=== PATIENT | female | born 1975 | race Caucasian/White ===

== ENCOUNTER 2020-09-06 19:18 | Inpatient (IN) | payer OTHER ==
[~2020-09-06] VITALS: Ht 172.7 cm; Wt 90.7 kg
--- NOTE | 2020-09-06 19:29 | NUR ---
SE RECIBE PACIENTE ALERTA, ORIENTADO X 3 ESFERAS REFIERE VENIR POR RESULTADOS DE LABORATORIOS ALTERADOS HEMOGLOBINA BAJA, Y PRSENTA DOLOR EN AREADE ABDOMEN BAJO. SE UBICA EN AREA DE OBSERVACION.
--- NOTE | 2020-09-06 20:55 | NUR ---
PTE EVALUADA POR EL DR GOMEZOSTA QUIEN [place]. SE ORIENTA SOBRE EL MISMO, LO CUAL REFIERE ENTENDER. SE REALIZA PRUEBAS DE LABORATORIO Y SE ADMINISTRA MEDICAMENTOS HAYDEN ORDEN MEDICA Y SIGUIENDO MEDIDAS ASEPTICAS. SE COLECTAN TUBOS PILOTOS PARA 2 U DE PRBC PARA TRANSFUNDIR. SE ENTREGAN LAS MISMAS A LABORATORIO Y SE NOTIFICA A [facility] [place] [facility] DE SHREYAS A LAS 8:35PM.
--- NOTE | 2020-09-06 23:00 | NUR ---
SE RECIBE FEMINA ALERTA Y ORIENTADA POR LUCIA ESFERAS, EN ADAMA CON BARANDAS SEGURAS Y ELEVADAS. AREA DE VENOPUNCION ABHI DE EDEMA O ENROJECIMIENTO. RECIBIENDO IVF ORDENADO. 09/07/200-SE LLAMA A [facility] PARA VERIFICAR ESTATUS DE SHREYAS ORDENADA. REFIEREN QUE LA SHREYAS VIENE DE [place].
--- NOTE | 2020-09-07 07:29 | NUR ---
SE RECIBE PTE FEMENINA DE 45 YRS ALERTA CONCIENTE Y TRANQUILA EN COMPANIA DE FAMILIAR. PTE SE OBSERVA CON IVF PATENTE Y ABHI DE EDEMA. PTE PENDIENTE A 2DA TRANSFUCION DE PRB'S. PTE ABHI DE DOLOR AL MOMENTO. SE MANTIENE BAJO OBSERVACION.
--- NOTE | 2020-09-07 08:37 | NUR ---
SE LE ARAVIND S/V A PTE PARA COMENZAR LA 2 UNIDAD DE PRB'S. SE MANTIENE ABHI DE DOLOR Y SE DOCUEMTA LOS S/V .
--- NOTE | 2020-09-07 12:30 | NUR ---
SE LE TERMINA TRASFUCIONE DE SHREYAS LA CUAL TOLERA.SE MANTIENE BAJO OBSERVACION.
[2020-09-09] MEDS ORDERED: SURFAK240 M1 PO (13:48)
[2020-09-09] MEDS ORDERED: INTEGRA PLUS C1 EACH PO (13:48)
[2020-09-09] MEDS ORDERED: Neurin-Sl Tablet Sl SL (13:48)
[2020-09-09] MEDS ORDERED: PEPCID AC20 MG PO (13:48)
[2020-09-09] MEDS ORDERED: FOLIC ACID1 MG PO (13:48)
== END 2020-09-09 14:38 | disposition home or self-care (01) | DRG 812 ==
LOC: ER 19:18 → MEDI 09-07 11:00 → OB/GYN 09-07 11:00
PROVIDERS: ADMIT Internal Medicine; ATTEND Internal Medicine
PROC: 30233N1 Transfusion of Nonautologous Red Blood Cells into Peripheral Vein, Percutaneous Approach (ICD-10-PCS; principal; 2020-09-07)
PROC: BW4GZZZ Ultrasonography of Pelvic Region (ICD-10-PCS; 2020-09-07)
DX: D50.0 Iron deficiency anemia secondary to blood loss (chronic) (principal); Z20.828 Contact with and (suspected) exposure to other viral communicable diseases; D25.1 Intramural leiomyoma of uterus; E53.8 Deficiency of other specified B group vitamins; M51.26 Other intervertebral disc displacement, lumbar region

== ENCOUNTER 2020-12-22 06:20 | Day surgery (SDC) | payer OTHER ==
[~2020-12-22 06:20] MED LIST: FOLIC ACID1 MG PO; INTEGRA PLUS C1 EACH PO; Neurin-Sl Tablet Sl SL; PEPCID AC20 MG PO; SURFAK240 M1 PO
[2020-12-22] MEDS ORDERED: PERCOCET 5-3251 EACH PO (12:59)
[2020-12-22] MEDS ORDERED: KETO10TA2 PO (12:59)
[2020-12-22] MEDS ORDERED: DERMOPLAST PAIN78 GM TOP (13:00)
== END 2020-12-22 17:25 | disposition home or self-care (01) ==
LOC: CIR.AMB 06:20
PROVIDERS: ATTEND Surgery
DX: K64.8 Other hemorrhoids (principal); K64.4 Residual hemorrhoidal skin tags; Z20.822 Contact with and (suspected) exposure to COVID-19

== ENCOUNTER 2021-04-13 09:36 | Outpatient (CLI) | payer OTHER ==
[~2021-04-13 09:36] MED LIST changes: +DERMOPLAST PAIN78 GM TOP; +KETO10TA2 PO; +PERCOCET 5-3251 EACH PO
== END 2021-04-13 09:40 | disposition home or self-care (01) ==
LOC: SONOGRAMA 09:36
PROVIDERS: ATTEND Pathology Anatomic Pathology
DX: E03.8 Other specified hypothyroidism (principal)

== ENCOUNTER 2024-09-28 15:19 | Emergency (ER) | payer OTHER ==
[~2024-09-28] VITALS: Ht 172.7 cm; Wt 88.5 kg
[2024-09-28] MEDS ORDERED: ATORVASTATIN CA40 MG PO (16:23)
[2024-09-28] MEDS ORDERED: AMLODIPINE-OLM1 EAC2 (16:24)
[2024-09-28] MEDS ORDERED: CHLORTHALIDONE25 MG PO (16:24)
[2024-09-28 17:14] LABS: HEMATOCRIT 41.1 % (36.0-45.00); HEMOGLOBIN 14.1 g/dL (12.0-15.00); MEAN CELL VOLUME 85.4 fL (80.00-100.00); MEAN CORPUSCULAR HEMOGLOBIN 29.4 pg (27.00-32.0); MEAN CORPUSCULAR HGB CONC 34.4 g/dl (32.0-36.0); PLATELET COUNT 328 K/uL (150-450); RED BLOOD COUNT 4.81 M/uL (4.00-6.00); RED CELL DISTRIBUTION WIDTH 13.4 % (11.5-14.5)
[2024-09-28] MEDS ORDERED: ANALPRAM HC 2.530 GM RECTAL (18:03)
== END 2024-09-28 18:06 | disposition home or self-care (01) ==
LOC: ER 15:21
PROVIDERS: General Practice
DX: K64.9 Unspecified hemorrhoids (principal)

== ENCOUNTER 2025-01-09 14:36 | Emergency (ER) | payer OTHER ==
[~2025-01-09] VITALS: Ht 172.7 cm; Wt 88.0 kg
[~2025-01-09 14:36] MED LIST changes: +AMLODIPINE-OLM1 EAC2; +ANALPRAM HC 2.530 GM RECTAL; +ATORVASTATIN CA40 MG PO; +CHLORTHALIDONE25 MG PO
[2025-01-09 14:41] VITALS: BP 126/84; O2SAT 100
[2025-01-09 16:52] LABS: HEMATOCRIT 40.3 % (36.0-45.00); HEMOGLOBIN 13.6 g/dL (12.0-15.00); MEAN CELL VOLUME 84.7 fL (80.00-100.00); MEAN CORPUSCULAR HEMOGLOBIN 28.6 pg (27.00-32.0); MEAN CORPUSCULAR HGB CONC 33.8 g/dl (32.0-36.0); PLATELET COUNT 340 K/uL (150-450); RED BLOOD COUNT 4.76 M/uL (4.00-6.00); RED CELL DISTRIBUTION WIDTH 13.6 % (11.5-14.5)
[2025-01-09 17:26] LABS: PH,URINE 5.5 (5.0-8.0); URINE APPEARANCE Clear; URINE BILIRRUBIN Negative (NEGATIVE); URINE BLOOD Negative; URINE COLOR Yellow; URINE GLUCOSE Negative (NEGATIVE); URINE KETONE Negative (NEGATIVE); URINE LEUKOCYTE Negative; URINE NITRATE Negative; URINE PROTEIN Trace (NEGATIVE); URINE UROBILINOGEN 0.2 E.U./dl
[2025-01-09 17:28] LABS: URINE BACTERIA 17.1 uL (0.0-1933); URINE EPITHELIAL CELLS 3.9 uL (0.0-38.8); URINE RBC 3.8 uL (0.0-20.8); URINE WBC 1.8 uL (0.0-23.2)
[2025-01-09 18:37] LABS: URINE CAST 0.14 uL (0.0-1.40)
[2025-01-09] MEDS ORDERED: LACTOBACILLUS ACIDOPHILUS 1 CAP CAP PO STA (18:44)
[2025-01-09] MEDS ORDERED: HYOSCYAMINE SULFATE 0.125 MG TAB.SUBL SL STA (18:46)
[2025-01-09] MEDS ORDERED: KETOROLAC TROMETHAMINE 30 MG VIAL IM STA (18:48)
[2025-01-09] MEDS ORDERED: KETOROLAC TROMETHAMINE 30 MG VIAL ONE (19:29)
[2025-01-09] MEDS ORDERED: HYOSCYAMINE SULFATE 0.125 MG TAB.SUBL ONE (19:29)
[2025-01-09] MEDS ORDERED: LACTOBACILLUS ACIDOPHILUS 1 CAP CAP PO ONE (19:29)
== END 2025-01-09 19:58 | disposition home or self-care (01) ==
LOC: ER 14:39
PROVIDERS: General Practice
DX: R10.32 Left lower quadrant pain (principal)

== ENCOUNTER 2025-05-15 11:17 | Inpatient (IN) | payer OTHER ==
[~2025-05-15] VITALS: Ht 243.8 cm; Wt 90.7 kg
[2025-05-15 12:05] LABS: RH POSITIVE
[2025-05-22] MEDS ORDERED: CEFAZOLIN SODIUM 1,000 MG VIAL IV SCH (05:00)
[2025-05-22] MEDS ORDERED: PANTOPRAZOLE SO40 MG (10:03)
[2025-05-22] MEDS ORDERED: AMLODIPINE BESYL5 MG (10:04)
[2025-05-22] MEDS ORDERED: NORETHINDRONE AC5 MG (10:04)
[2025-05-22] MEDS ORDERED: BIOTINEX (10:05)
[2025-05-22] MEDS ORDERED: BUPIVACAINE HCL 30 ML VIAL IJ ONE (18:15)
[2025-05-22] MEDS ORDERED: LIDOCAINE HCL 1%/EPINEPHRINE 20ML VIAL IJ ONE (18:15)
[2025-05-22] MEDS ORDERED: POVIDONE-IODINE 118 ML BOTT TOP ONE (18:15)
[2025-05-22] MEDS ORDERED: THROMBIN,HU/FIBRINOGEN/CALCIUM 10 ML SYRINGE TOP ONE (18:15)
[2025-05-22] MEDS ORDERED: VISTASEAL DUAL APPICATOR 1 EACH APPL TOP ONE (18:15)
[2025-05-22] MEDS ORDERED: RINGERS SOLUTION,LACTATED 1,000 ML IV SCH (18:58)
[2025-05-22] MEDS ORDERED: ONDANSETRON HCL 2 MG/ML VIAL IV SCH (18:59)
[2025-05-22] MEDS ORDERED: CELECOXIB 200 MG CAPSULE PO STA (18:59)
[2025-05-22] MEDS ORDERED: ACETAMINOPHEN 325 MG TABLET PO SCH (18:59)
[2025-05-22] MEDS ORDERED: GABAPENTIN 100 MG CAPSULE PO SCH (19:00)
[2025-05-22] MEDS ORDERED: MORPHINE SULFATE 4 MG/ML VIAL IV ONE (20:00)
[2025-05-22] MEDS ORDERED: ENALAPRILAT DIHYDRATE 1.25 MG/ML VIAL IV PRN (21:30)
[2025-05-22 21:59] LABS: BASO % 0.2 % (0.1-1.2); EOS # 0.04 (0.04-0.54); EOS % 0.4 % (0.7-7.0); LYMPH # 1.20 (1.18-3.74); LYMPH % 13.1 % (19.3-53.1); MEAN PLATELET VOLUME 9.10 fl (9.4-12.4); MONO # 0.36 (0.24-0.82); MONO % 3.9 % (4.7-12.5); NEUT # 7.53 (1.56-6.13); NEUT % 82.0 % (34.0-71.1); RED CELL DISTRIBUTION WIDTH 12.4 % (11.6-14.4)
[2025-05-22 22:22] LABS: BUN CREA RATIO 22.0 (7.0-25.0); CREATININE SERUM 0.65 mg/dL (0.55-1.02); GFR 97.28; GLUCOSE FASTING 113.0 mg/dL (65-100); OSMOLALITY SERUM 283.0 MOSM/KG (275-295)
[2025-05-23 01:26] VITALS: BP 118/74
[2025-05-23 01:26] LABS: BASO % 0.2 % (0.1-1.2); EOS # 0.02 (0.04-0.54); EOS % 0.2 % (0.7-7.0); LYMPH # 1.43 (1.18-3.74); LYMPH % 15.6 % (19.3-53.1); MEAN PLATELET VOLUME 9.00 fl (9.4-12.4); MONO # 0.36 (0.24-0.82); MONO % 3.9 % (4.7-12.5); NEUT # 7.31 (1.56-6.13); NEUT % 79.9 % (34.0-71.1); RED CELL DISTRIBUTION WIDTH 12.4 % (11.6-14.4)
[2025-05-23 04:30] VITALS: BP 117/71
[2025-05-23 06:15] LABS: BASO % 0.3 % (0.1-1.2); EOS # 0.06 (0.04-0.54); EOS % 0.8 % (0.7-7.0); LYMPH # 1.83 (1.18-3.74); LYMPH % 24.3 % (19.3-53.1); MEAN PLATELET VOLUME 9.30 fl (9.4-12.4); MONO # 0.53 (0.24-0.82); MONO % 7.0 % (4.7-12.5); NEUT # 5.08 (1.56-6.13); NEUT % 67.5 % (34.0-71.1); RED CELL DISTRIBUTION WIDTH 12.3 % (11.6-14.4)
[2025-05-23 07:03] LABS: BUN CREA RATIO 19.0 (7.0-25.0); CREATININE SERUM 0.59 mg/dL (0.55-1.02); GFR 108.79; GLUCOSE FASTING 93.0 mg/dL (65-100); OSMOLALITY SERUM 282.0 MOSM/KG (275-295)
[2025-05-23 08:00] VITALS: BP 140/80
[2025-05-23] MEDS ORDERED: AMLODIPINE BESYLATE 5 MG TABLET PO SCH (09:00)
[2025-05-23] MEDS ORDERED: PATIENTS OWN MEDICATION (MEDICAMENTO EN PISO) PO SCH (09:00)
[2025-05-23] MEDS ORDERED: SIMETHICONE 125 MG CAPSULE PO STA (13:18)
[2025-05-23] MEDS ORDERED: FAMOTIDINE/PF 20 MG/2 ML VIAL IV SCH (13:18)
[2025-05-23] MEDS ORDERED: SIMETHICONE 125 MG CAPSULE PO PRN (13:30)
[2025-05-23 16:34] VITALS: BP 118/73
[2025-05-23] MEDS ORDERED: ATORVASTATIN CALCIUM 40 MG TABLET PO SCH ×2 (17:00)
[2025-05-24 01:43] VITALS: BP 112/69
[2025-05-24 08:00] VITALS: BP 123/79
[2025-05-24] MEDS ORDERED: ATORVASTATIN CALCIUM 40 MG TABLET PO SCH (09:00)
[2025-05-24 10:29] LABS: BASO % 0.2 % (0.1-1.2); EOS # 0.19 (0.04-0.54); EOS % 3.5 % (0.7-7.0); LYMPH # 1.36 (1.18-3.74); LYMPH % 25.2 % (19.3-53.1); MEAN PLATELET VOLUME 9.20 fl (9.4-12.4); MONO # 0.29 (0.24-0.82); MONO % 5.4 % (4.7-12.5); NEUT # 3.53 (1.56-6.13); NEUT % 65.3 % (34.0-71.1); RED CELL DISTRIBUTION WIDTH 12.6 % (11.6-14.4)
[2025-05-24 11:29] LABS: BUN CREA RATIO 10.0 (7.0-25.0); CREATININE SERUM 0.73 mg/dL (0.55-1.02); GFR 85.09; GLUCOSE FASTING 193.0 mg/dL (65-100); OSMOLALITY SERUM 286.0 MOSM/KG (275-295)
[2025-05-24] MEDS ORDERED: NAPH,MB-DB/K PH,MBDB 1 PKT PACKET PO STA (13:53)
== END 2025-05-24 14:20 | disposition home or self-care (01) | DRG 743 ==
LOC: O/R 05-22 07:43 → OB/GYN 05-22 11:45
PROVIDERS: Internal Medicine Geriatric Medicine; Student in an Organized Health Care Education/Training Program; Urology; ADMIT Obstetrics & Gynecology Gynecology; ATTEND Obstetrics & Gynecology Gynecology
PROC: 0T788DZ Dilation of Bilateral Ureters with Intraluminal Device, Via Natural or Artificial Opening Endoscopic (ICD-10-PCS; 2025-05-22)
PROC: 0UT94ZZ Resection of Uterus, Percutaneous Endoscopic Approach (ICD-10-PCS; principal; 2025-05-22 13:15)
PROC: 0UT74ZZ Resection of Bilateral Fallopian Tubes, Percutaneous Endoscopic Approach (ICD-10-PCS; 2025-05-22 13:15)
DX: D25.1 Intramural leiomyoma of uterus (principal); N80.03 Adenomyosis of the uterus; N84.1 Polyp of cervix uteri; N92.0 Excessive and frequent menstruation with regular cycle

== ENCOUNTER → 2025-09-14 | Emergency (ER) | payer OTHER ==
[~2025-09-14] VITALS: Ht 172.7 cm; Wt 95.3 kg
[~2025-09-14] MED LIST changes: +AMLODIPINE BESYL5 MG; +BIOTINEX; +NORETHINDRONE AC5 MG; +PANTOPRAZOLE SO40 MG
[2025-09-14 18:16] LABS: BASO % 0.2 % (0.1-1.2); EOS # 0.14 (0.04-0.54); EOS % 1.7 % (0.7-7.0); LYMPH # 2.69 (1.18-3.74); LYMPH % 32.9 % (19.3-53.1); MEAN PLATELET VOLUME 9.10 fl (9.4-12.4); MONO # 0.54 (0.24-0.82); MONO % 6.6 % (4.7-12.5); NEUT # 4.75 (1.56-6.13); NEUT % 58.2 % (34.0-71.1); RED CELL DISTRIBUTION WIDTH 14.4 % (11.6-14.4)
[2025-09-14 19:02] LABS: ALT/SGPT 25.0 U/L (12-78); AST/SGOT 16.0 U/L (15-37); BILIRUBIN TOTAL 0.48 mg/dL (0.3-1.2); BUN CREA RATIO 26.0 (7.0-25.0); CREATININE SERUM 0.54 mg/dL (0.55-1.02); GFR 120.5; GLOBULINA 4.1 G/DL (2.4-3.5); GLUCOSE FASTING 110.0 mg/dL (65-100); OSMOLALITY SERUM 281.0 MOSM/KG (275-295)
== END | disposition home or self-care (01) ==
LOC: ER 14:29
PROVIDERS: General Practice
DX: M79.89 Other specified soft tissue disorders (principal); R22.43 Localized swelling, mass and lump, lower limb, bilateral; R20.2 Paresthesia of skin; I10 Essential (primary) hypertension

== ENCOUNTER 2025-09-24 09:38 | Outpatient (CLI) | payer OTHER | END 2025-09-24 09:39 | disposition home or self-care (01) | LOC: NUCLEAR 09:38 | DX: M79.89 Other specified soft tissue disorders (principal); R60.0 Localized edema ==